=== PATIENT | female | born 1930 | race Caucasian/White ===

== ENCOUNTER 2016-07-29 22:29 | Emergency (ER) | payer OTHER, MEDICARE ==
[~2016-07-29] VITALS: Ht 162.6 cm; Wt 63.5 kg
--- NOTE | ~2016-07-29 | EKG ---
[address] [facility] [place] [address] ELECTROCARDIOGRAM REPORT Name: LENIN,PHILIPPE Mendoza Room #: DEP [facility]#: [id number] Admission: 07/29/16 Attend Phys: Discharge: 07/30/16 Date of : [birth year] Report #: [id number] THIS REPORT FOR: //name// [facility] ED Test Date: 2016-07-29 Test Time: 22:32:46 Pat Name: PHILIPPE PHELPS Department: Room: Gender: F Private Secretary: NUVIA : 1930 Requested By: Alexis Hester Order Number: [id number] MD: Donovan Modi Measurements Intervals [place] Rate: 81 P: 41 [place]: 153 QRS: -14 QRSD: 88 T: 13 QT: 384 QTc: 446 Interpretive Statements Sinus rhythm Poor R wave progression Compared to ECG 06/08/2016 12:46:18 no significant change was found Electronically Signed On 07-30-2016 8:24:26 CDT by Donovan Modi [email or web address] <ELECTRONICALLY SIGNED> By: Donovan Modi MD, [facility] 07/30/16 0824 31 31 Donovan Modi MD, FAC /EPI
[~2016-07-29 22:29] MED LIST: ADULT LOW DOSE81 MG PO; ALPRAZOLAM 0.0.25 MG PO; AMOXICILLIN875 MG PO; AZO CRANBERRY250 MG PO; CELEXA 10 MG TA10 M1 PO; CELEXA10 MG PO; CITRATE OF MAG296 ML PO; CLOTRIMAZOLE 1%15 G1 TOP; CLOTRIMAZOLE-BE15 GM TP; COLACE100 MG PO; COZAAR 50 MG TA50 M1 PO; DIAZEPAM; DIPHENHIST25 M2 PO; DONEPEZIL HCL 55 M1 PO; EXELON1 EACH TRANSDERM; FLOMAX0.4 MG PO; KLOR-CON 1010 MEQ PO; LEVAQUIN 250 M250 MG PO; LEVAQUIN 500 M500 M2 PO; LOMOTIL 2.5-0.01 TAB PO; LOSARTAN-HCTZ1 EACH; MACROBID 100 M100 M1 PO; MACROBID 100 M100 M2 PO; MAXAIR AUTOHALE14 G1 IH; METAMUCIL PAC1 UDPKT PO; MIRALAX17 GM; MULTIVITAMINS PO; NITROGLYCERIN0.4 MG SL; OCUFEN2.5 ML; OMEPRAZOLE PO; OMEPRAZOLE20 M2 PO; PREDNISONE 10 M10 MG PO; PREDNISONE 20 M20 M1 PO; PREDNISONE 20 M20 MG; PREDNISONE 20 M20 MG PO; PREDNISONE 5 MG5 M1 PO; PRILOSEC20 MG PO; PRIMATINE INH; PULMICORT0.25 MG/2 INH; RESTORIL15 MG PO; SIMBRINZA 1%-0.28 ML OP; SIMBRINZA 1%-0.28 ML OPHTHALMIC; SINGULAIR 10 MG10 M1 PO; SYMBICORT160 MCG/4. INH; TIMOLOL GL0.5 %/5 M1 OPHTHALMIC; TOBRADEX ST EYE5 ML; TRUSOPT OCUMETE10 M1 OP; XALATAN2.5 ML OP; XALATAN2.5 ML OPHTHALMIC; XANAX 0.25 MG0.25 MG PO; XANAX 0.5 MG0.5 MG; XOPENEX 0.63 MG/3 M1 INH; XOPENEX HF1 UDINHALE INH; XOPENEX HFA15 GM IH
[2016-07-29] MEDS ORDERED: LOSARTAN-HCTZ1 EACH PO (22:46)
[2016-07-29 23:06] LABS: ABSOLUTE NEUTROPHILS 3.3 thou/uL (1.4-8.2); BASOPHILS 0.7 % (0.0-2.0); HEMATOCRIT 36.1 % (37.0-47.0); HEMOGLOBIN 12.1 gm/dL (12.0-15.0); MCH 27.7 pg (26.0-34.0); MCHC 33.6 g/dL (28.0-37.0); MCV 82.6 fL (80.0-100.0); MONOCYTES 11.6 % (1.0-8.0); PLATELET COUNT 218 thou/uL (150-400); POLYS 57.7 % (36.0-66.0); RBC 4.37 mil/uL (4.20-5.00); RDW 15.1 % (10.5-14.5); WBC 5.7 thou/uL (4.0-11.0)
[2016-07-29 23:09] LABS: MANUAL DIFF NO
[2016-07-29 23:10] LABS: ANION GAP 10 mmol/L (7-16); BUN 20 mg/dL (7-18); CALCIUM 8.7 mg/dL (8.5-10.1); CHLORIDE 100 mmol/L (98-107); CO2 27 mmol/L (21-32); CREATININE 0.9 mg/dL (0.6-1.0); GLUCOSE 122 mg/dL (74-106); POTASSIUM 3.5 mmol/L (3.5-5.1); SODIUM 137 mmol/L (136-145)
[2016-07-29 23:21] LABS: ALKALINE PHOSPHATASE 88 U/L (46-116); MAGNESIUM 1.3 mg/dL (1.8-2.4); NT-PRO BRAIN NAT PEPTIDE 190 pg/mL (<300); SGOT 16 U/L (15-37); SGPT 17 U/L (30-65); TOTAL BILIRUBIN 0.3 mg/dL (<0.1-1.0); TOTAL PROTEIN 6.5 g/dL (6.4-8.2); TROPONIN-I < 0.04 ng/mL (<0.04-0.07)
[2016-07-30] MEDS ORDERED: MAG-OXIDE400 MG PO (00:05)
== END 2016-07-30 01:00 | disposition home or self-care (01) ==
LOC: ER 22:29
PROVIDERS: Emergency Medicine
DX: J45.909 Unspecified asthma, uncomplicated (principal); F41.9 Anxiety disorder, unspecified; E83.42 Hypomagnesemia; F03.90 Unspecified dementia, unspecified severity, without behavioral disturbance, psychotic disturbance, mood disturbance, and anxiety; I10 Essential (primary) hypertension; Z90.89 Acquired absence of other organs; Z88.2 Allergy status to sulfonamides; Z88.6 Allergy status to analgesic agent